=== PATIENT | male | born 1960 | race Caucasian/White ===

== ENCOUNTER 2017-07-23 19:44 | Inpatient (IN) | payer OTHER ==
[~2017-07-23] VITALS: Ht 170.2 cm; Wt 62.0 kg
[2017-07-23] MEDS ORDERED: ADENOSINE 6 MG/2 ML ONE ×2 (20:06→20:13)
[2017-07-23] MEDS ORDERED: METOPROLOL 1 MG/ML, 5ML ONE ×2 (20:22→20:23)
[2017-07-23] MEDS ORDERED: METOPROLOL 1 MG/ML, 5ML IVPush PRN (20:30)
[2017-07-23] MEDS ORDERED: SODIUM CHLORIDE FLUSH 10ML SYR IVF ONE (20:30)
[2017-07-23] MEDS ORDERED: BUDE10.2 INH (20:51)
[2017-07-23] MEDS ORDERED: FLUT5POW4 NAS (20:51)
[2017-07-23] MEDS ORDERED: SIMV10TA3 PO (20:51)
[2017-07-23] MEDS ORDERED: TIOT18CA INH (20:51)
[2017-07-23] MEDS ORDERED: LORA10TA62 PO (20:51)
[2017-07-23] MEDS ORDERED: ATEN25TA PO (20:51)
[2017-07-23] MEDS ORDERED: LEVA15HF4 INH (20:51)
[2017-07-23 20:54] LABS: HEMATOCRIT 51.4 % (39.2-51.8); HEMOGLOBIN 17.5 g/dL (13.7-18.0); WHITE BLOOD COUNT 12.6 x10^3/uL (3.4-10)
[2017-07-23 21:06] LABS: ASPARTATE AMINO TRANSFERASE 24 U/L (15-37); BLOOD UREA NITROGEN 18 mg/dL (7-18)
[2017-07-23 21:11] LABS: IS PT STATUS REG ER OR PRE ER? YES
[2017-07-23] MEDS ORDERED: PLEASE ENTER ALLERGIES MC SCH ×2 (21:30)
[2017-07-23] MEDS ORDERED: ATENOLOL 25 MG TABLET PO ONE (22:30)
[2017-07-23 23:49] VITALS: BP 117/81
[2017-07-24] MEDS ORDERED: SIMVASTATIN 10 MG TABLET PO SCH
[2017-07-24] MEDS: SODIUM CHLORIDE 0.9% 100 ML IV SCH ×8 (00:30→07:30)
[2017-07-24] MEDS ORDERED: CALCIUM CARBONATE 500 MG TAB.CHEW PO PRN (01:30)
[2017-07-24] MEDS: LEVALBUTEROL TARTRATE INH SCH ×5 (04:00→16:00)
[2017-07-24] MEDS ORDERED: ASPI-650 PO (07:40)
[2017-07-24 08:30] VITALS: BP 123/81
[2017-07-24] MEDS ORDERED: SODIUM CHLORIDE 0.9% 1,000 ML IV SCH (08:30)
[2017-07-24] MEDS ORDERED: LORATADINE 10 MG TABLET PO SCH (09:00)
[2017-07-24] MEDS ORDERED: ATENOLOL 25 MG TABLET PO SCH (09:00)
[2017-07-24] MEDS ORDERED: FLUTICASONE/VILANTEROL 100-25MCG/INH INH SCH (09:00)
[2017-07-24] MEDS ORDERED: FLUTICASONE NASAL SPRAY 16GM NAS SCH (09:00)
[2017-07-24] MEDS: IPRATROPIUM 0.5 MG/2.5 ML INHA HHN SCH ×2 (09:40→14:52)
[2017-07-24 14:30] VITALS: BP 117/88
[2017-07-24] MEDS ORDERED: ATEN25TA PO (16:14)
[2017-07-24] MEDS ORDERED: ASPI-496 PO (16:27)
[2017-07-24] MEDS ORDERED: APIX5TAB PO (16:27)
[2017-07-25] MEDS ORDERED: ASPIRIN 325 MG TABLET PO SCH (06:00)
[2017-07-25] MEDS ORDERED: ASPIRIN 325 MG TABLET EC PO SCH (09:00)
== END 2017-07-24 16:56 | disposition home or self-care (01) | DRG 189 ==
LOC: ED 21:50 → EDIP 22:08 → 5SO 23:37
PROVIDERS: ADMIT Surgery; ATTEND Surgery
DX: J96.20 Acute and chronic respiratory failure, unspecified whether with hypoxia or hypercapnia (principal); N17.9 Acute kidney failure, unspecified; I50.30 Unspecified diastolic (congestive) heart failure; I11.0 Hypertensive heart disease with heart failure; I48.91 Unspecified atrial fibrillation; I48.92 Unspecified atrial flutter; J44.1 Chronic obstructive pulmonary disease with (acute) exacerbation; Z99.81 Dependence on supplemental oxygen; E78.00 Pure hypercholesterolemia, unspecified; D72.829 Elevated white blood cell count, unspecified; Z79.82 Long term (current) use of aspirin; Z87.891 Personal history of nicotine dependence; Z86.14 Personal history of Methicillin resistant Staphylococcus aureus infection; Z88.1 Allergy status to other antibiotic agents; Z88.2 Allergy status to sulfonamides
CPT/HCPCS: 36415; 71010; 80053; 84484; 85025; 85610; 85730; 93005; 94640; 99285; J7644